=== PATIENT | female | born 1960 | race Caucasian/White ===

== ENCOUNTER → 2021-06-11 | Day surgery (SDC) | payer OTHER ==
[~2021-06-11] MED LIST: ACETAMINOPHEN-1 EAC4 PO; BUPIVACAINE HC 0.75% PF 10ML VIAL INJ ONE; LIDOCAINE HCL 1% LOCAL INJ 20 ML VIAL ONE; MUPIROCIN 2% OINT 22 GM TUBE ONE; ROPINIROLE HCL1 MG PO; SODIUM CHLORIDE 0.9% 50ML 50 ML ONE
[2021-06-11 08:05] VITALS: BP 127/78
== END | disposition home or self-care (01) ==
LOC: OR 06:03
PROVIDERS: ATTEND Plastic Surgery
DX: G56.01 Carpal tunnel syndrome, right upper limb (principal); M65.831 Other synovitis and tenosynovitis, right forearm; F41.9 Anxiety disorder, unspecified; Z01.810 Encounter for preprocedural cardiovascular examination; Z01.812 Encounter for preprocedural laboratory examination; Z20.822 Contact with and (suspected) exposure to COVID-19; Z87.891 Personal history of nicotine dependence
CPT/HCPCS: 25115; 93005; J0690; U0002; J2001

== ENCOUNTER 2023-08-04 21:36 | Observation (INO) | payer OTHER ==
[~2023-08-04] VITALS: Ht 160 cm; Wt 63.5 kg
[~2023-08-04 21:36] MED LIST changes: -BUPIVACAINE HC 0.75% PF 10ML VIAL INJ ONE; +DEXAMETHASONE SOD PHOS INJ 4 MG/ML SDV ONE; +KETOROLAC TROMETHAMINE 30 MG/ML VIAL ONE; -LIDOCAINE HCL 1% LOCAL INJ 20 ML VIAL ONE; +LIDOCAINE HCL 2% LOCAL INJ 5 ML SDV VIAL INJ ONE; +METOCLOPRAMIDE HCL 10 MG/2ML VIAL ONE; -MUPIROCIN 2% OINT 22 GM TUBE ONE; +ONDANSETRON HCL INJ 2MG/ML 2ML 2 MG/ML VIAL ONE; +PROPOFOL IV EMULSION 10 MG/ML 20 ML VIAL ONE; +ROCURONIUM BROMIDE 10 MG/ML 5ML VIAL IV ONE; +SEVOFLURANE INHAL SOLN 250 ML PEN BTL ONE; -SODIUM CHLORIDE 0.9% 50ML 50 ML ONE; +SUCCINYLCHOLINE CHLORIDE 20 MG/ML 10ML VIAL ONE; +SUGAMMADEX SODIUM 200 MG/2 ML VIAL IV ONE
[2023-08-04] MEDS ORDERED: ONDANSETRON HCL INJ 2MG/ML 2ML 2 MG/ML VIAL IV STA ×2 (21:58→23:36)
[2023-08-04] MEDS ORDERED: SODIUM CHLORIDE 0.9% 1000ML 1,000 ML IV STA (21:58)
[2023-08-04] MEDS ORDERED: Morphine 4mg INJECTION 4 MG/ML INJ IV STA ×2 (21:58→23:36)
[2023-08-04 22:25] LABS: BASOPHILS # (AUTO) 0.1 (0.0-0.1); BASOPHILS % 0.5 % (0.0-1.0); EOSINOPHILS # (AUTO) 0.2 (0.0-0.4); EOSINOPHILS % 1.6 % (0.0-6.0); HEMOGLOBIN 13.8 g/dL (12.0-16.0); LYMPHOCYTES # (AUTO) 2.2 (1.0-3.2); LYMPHOCYTES % 17.5 % (18.0-39.1); MEAN CORPUSCULAR HEMOGLOBIN 31.2 pg (28-32); MEAN CORPUSCULAR HGB CONC 35.4 g/dL (31-35); MEAN CORPUSCULAR VOLUME 88.2 fL (81-99); MONOCYTES % 7.9 % (4.4-11.3); NEUTROPHILS # (AUTO) 9.1 (2.1-6.9); NEUTROPHILS % 72.3 % (38.7-80.0); PLATELET COUNT 349 x10e3/uL (140-360); RED BLOOD COUNT 4.42 x10e6/uL (3.6-5.1); RED CELL DISTRIBUTION WIDTH 12.9 % (11.7-14.4); WHITE BLOOD COUNT 12.54 x10e3/uL (4.8-10.8)
[2023-08-04 22:39] LABS: ALBUMIN 4.1 g/dL (3.5-5.0); ALBUMIN/GLOBULIN RATIO 1.4 (0.8-2.0); ANION GAP 12.9 mmol/L (8-16); CALCIUM 9.5 mg/dL (8.4-10.2); CREATININE, SERUM 0.92 mg/dL (0.57-1.11); POTASSIUM 3.9 mmol/L (3.5-5.1)
[2023-08-04 22:41] LABS: BACTERIA,URINE FEW /HPF; CLARITY,URINE CLEAR (CLEAR); COLOR,URINE YELLOW (YELLOW); EPITHELIAL CELLS,URINE FEW /LPF; KETONES,URINE NEGATIVE (NEGATIVE); LEUKOCYTE ESTERASE ,URINE NEGATIVE (NEGATIVE); NITRITE,URINE NEGATIVE (NEGATIVE); PROTEIN,URINE DIPSTICK NEGATIVE (NEGATIVE); URINE UROBILINOGEN 0.2 mg/dL (0.2 - 1)
[2023-08-04] MEDS ORDERED: IOPAMIDOL 370 MG/ML 100 ML INFUS..BTL INJ ONE (23:23)
[2023-08-05] MEDS ORDERED: PROMETHAZINE 25MG/ NS 50ML (IV) IV STA (00:18)
[2023-08-05] MEDS: SODIUM CHLORIDE 0.9% 1000ML 1,000 ML IV SCH ×3 (01:49→21:36)
[2023-08-05] MEDS: HYDROMORPHONE 1MG/1ML INJ IV PRN ×5 (02:17→16:17)
[2023-08-05] MEDS: ONDANSETRON HCL INJ 2MG/ML 2ML 2 MG/ML VIAL IV PRN ×3 (06:12→12:57)
[2023-08-05 10:44] VITALS: BP 147/73; PULSE 97; RESP 18; TEMP 99.2; O2SAT 99
[2023-08-05 12:16] VITALS: BP 147/73; PULSE 97; RESP 18; TEMP 99.2; O2SAT 98
[2023-08-05 16:45] VITALS: BP 123/71; PULSE 98; RESP 16; TEMP 99.3; O2SAT 96
[2023-08-05] MEDS ORDERED: FENTANYL CITRATE/PF 100MCG/2 ML INJ ONE (18:18)
[2023-08-05] MEDS ORDERED: HYDROMORPHONE 1MG/1ML INJ ONE (18:19)
[2023-08-05] MEDS ORDERED: BUPIVACAINE 0.25% 30ML SDV ONE ×2 (18:29→18:55)
[2023-08-05 20:00] VITALS: BP 103/61; PULSE 89; RESP 18; TEMP 97.9; O2SAT 97
[2023-08-05 22:26] VITALS: BP 114/63; PULSE 92; RESP 18; TEMP 97; O2SAT 96
[2023-08-06] VITALS: BP 118/60; PULSE 81; RESP 18; TEMP 98.6; O2SAT 95
[2023-08-06] MEDS: SODIUM CHLORIDE 0.9% 1000ML 1,000 ML IV SCH (02:33)
[2023-08-06 04:00] VITALS: BP 122/67; PULSE 82; RESP 18; TEMP 98; O2SAT 97
[2023-08-06 05:47] LABS: BASOPHILS # (AUTO) 0.1 (0.0-0.1); BASOPHILS % 0.3 % (0.0-1.0); HEMATOCRIT 36.8 % (34.2-44.1); HEMOGLOBIN 12.7 g/dL (12.0-16.0); LYMPHOCYTES # (AUTO) 0.7 (1.0-3.2); LYMPHOCYTES % 4.2 % (18.0-39.1); MEAN CORPUSCULAR HGB CONC 34.5 g/dL (31-35); MEAN CORPUSCULAR VOLUME 89.8 fL (81-99); MONOCYTES # (AUTO) 0.7 (0.2-0.8); NEUTROPHILS # (AUTO) 14.6 (2.1-6.9); NEUTROPHILS % 90.9 % (38.7-80.0); PLATELET COUNT 306 x10e3/uL (140-360); RED CELL DISTRIBUTION WIDTH 12.7 % (11.7-14.4); WHITE BLOOD COUNT 16.09 x10e3/uL (4.8-10.8)
[2023-08-06 06:13] LABS: ALBUMIN/GLOBULIN RATIO 0.9 (0.8-2.0); ANION GAP 12.1 mmol/L (8-16); CALCIUM 8.6 mg/dL (8.4-10.2); CREATININE, SERUM 0.83 mg/dL (0.57-1.11); POTASSIUM 4.1 mmol/L (3.5-5.1)
[2023-08-06] MEDS ORDERED: ULTRAM 50MG50 MG PO (06:29)
[2023-08-06 08:37] VITALS: BP 115/66; PULSE 81; RESP 16; TEMP 98.7; O2SAT 97
== END 2023-08-06 08:49 | disposition home or self-care (01) ==
LOC: ER 21:45 → INTOOBSV 08-05 00:44 → ERHOLD 08-05 00:44 → MED/SURG 08-05 10:23
PROVIDERS: ADMIT Family Medicine; ATTEND Family Medicine
DX: C18.1 Malignant neoplasm of appendix (principal); K35.891 Other acute appendicitis without perforation, with gangrene; G25.81 Restless legs syndrome; Z11.52 Encounter for screening for COVID-19; F17.200 Nicotine dependence, unspecified, uncomplicated; Z79.899 Other long term (current) drug therapy
CPT/HCPCS: 36415 ×2; 44970; 74177; 80053 ×2; 81001; 83690; 85025 ×2; 88304; 88342; 93005; 99284; G0378 ×2; J0330; J0690; J1100; J1170; J1885; J2001; J2270; J2405 ×2; J2543 ×2; J2550; J2704; J2765; J7030 ×3; Q9967; U0002